=== PATIENT | male | born 1940 | race Caucasian/White ===

== ENCOUNTER 2017-03-11 13:18 | Outpatient (CLI) | payer MEDICARE ==
--- NOTE | 2017-03-11 15:59 | RAD ---
TWO VIEWS CHEST 03/11/17 HISTORY: Dyspnea. PA and lateral views of the chest obtained on 03/11/17. Comparison made to previous exam from 06/27/16. Two views chest demonstrate dextroscoliosis. Surgical clips seen in the left hilar region. Areas of patchy densities seen in the right upper lobe compatible with areas of right upper lobe scar . This is not significantly changed since the previous comparison exam. No evidence of pneumonia seen . No other significant abnormality seen. 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 No significant acute abnormality seen. POS: [facility]
== END 2017-03-11 13:19 | disposition home or self-care (01) ==
LOC: RAD 13:18
PROVIDERS: ATTEND Thoracic Surgery (Cardiothoracic Vascular Surgery)
DX: C34.11 Malignant neoplasm of upper lobe, right bronchus or lung (principal); J98.4 Other disorders of lung
CPT/HCPCS: 71020

== ENCOUNTER 2017-05-08 11:40 | Outpatient (CLI) | payer MEDICARE ==
--- NOTE | 2017-05-08 12:18 | RAD ---
TWO VIEW CHEST: Comparison: 03-11-17 Indication: Dyspnea. FINDINGS: There is stable linear and reticular nodular density at the superolateral right hemithorax. Additiona l linear densities of the midright lung zone are present with superimposed remote right rib deformiti es. Post-operative clips at the mediastinum are seen. The cardiomediastinal silhouette is stable. The re is mild pulmonary hyperinflation. IMPRESSION: Stable chest. POS: [facility]
== END 2017-05-08 11:41 | disposition home or self-care (01) ==
LOC: RAD 11:40
PROVIDERS: ATTEND Internal Medicine Critical Care Medicine
DX: R06.00 Dyspnea, unspecified (principal)
CPT/HCPCS: 71046

== ENCOUNTER 2017-10-23 13:20 | Outpatient (CLI) | payer MEDICARE ==
--- NOTE | 2017-10-23 13:35 | RAD ---
2 VIEWS CHEST: Date: 10/23/17 COMPARISON: 05/08/17. HISTORY: Dyspnea. FINDINGS: Two views of the chest show normal sized cardiomediastinal silhouette with atherosclerotic calcificat ions of the aorta. There is stable biapical pleural thickening. Increased interstitial markings are p resent. There is no evidence of consolidation, mass, or pleural effusion. Degenerative changes and sc oliotic curvature of the spine are seen. IMPRESSION: No evidence of acute cardiopulmonary disease. POS: [facility]
== END 2017-10-23 13:21 | disposition home or self-care (01) ==
LOC: RAD 13:20
PROVIDERS: ATTEND Internal Medicine Critical Care Medicine
DX: R06.00 Dyspnea, unspecified (principal)
CPT/HCPCS: 71046

== ENCOUNTER 2018-06-04 14:53 | Outpatient (CLI) | payer MEDICARE ==
--- NOTE | 2018-06-04 17:23 | RAD ---
PA AND LATERAL VIEWS: History: Dyspnea. FINDINGS: Comparison made with exam of 10-23-17. The heart size is normal. The aorta is tortuous. There is scoliosis of the spine. The lungs are well expanded with stable chronic changes. No focal areas of consolidation, pneumothorax or pleural effusi ons are seen. IMPRESSION: Stable exam. No acute process. POS: [facility]
== END 2018-06-04 14:54 | disposition home or self-care (01) ==
LOC: RAD 14:53
PROVIDERS: ATTEND Internal Medicine Critical Care Medicine
DX: R06.00 Dyspnea, unspecified (principal)
CPT/HCPCS: 71046

== ENCOUNTER 2018-11-24 10:47 | Outpatient (CLI) | payer MEDICARE ==
--- NOTE | 2018-11-24 11:41 | RAD ---
TWO VIEWS CHEST: DATE: 11/24/2018. PROVIDED CLINICAL HISTORY: Dyspnea. FINDINGS: Comparison is made with the study dated 06/04/2018. Cardiac and mediastinal silhouette is unchanged i n appearance. Vascular calcification is again noted. Prominent emphysematous changes are redemonstr ated. There is stable pleural parenchymal opacity at the lateral aspect of the right upper lung zone . Lungs appear otherwise clear. No pleural fluid or pneumothorax apparent. IMPRESSION: Stable radiographic appearance of the chest. POS: [facility]
== END 2018-11-24 10:48 | disposition home or self-care (01) ==
LOC: RAD 10:47
PROVIDERS: ATTEND Internal Medicine Critical Care Medicine
DX: R06.00 Dyspnea, unspecified (principal)
CPT/HCPCS: 71046

== ENCOUNTER 2021-09-13 13:55 | Outpatient (CLI) | payer MEDICARE, OTHER | END 2021-09-13 13:56 | disposition home or self-care (01) | LOC: RAD 13:55 | PROVIDERS: ATTEND Internal Medicine Critical Care Medicine | DX: R06.00 Dyspnea, unspecified (principal); J98.4 Other disorders of lung; M41.9 Scoliosis, unspecified; I51.7 Cardiomegaly | CPT/HCPCS: 71046 ==